=== PATIENT | female | born 1985 | race Caucasian/White ===

== ENCOUNTER → 2017-09-26 22:02 | Observation (INO) ==
--- NOTE | 2017-09-26 20:46 | OB/GYN Progress Note ---
Date of Encounter: 09/26/17 Time of Encounter: 20:41 - Assessment and Plan (1) 38 weeks gestation of Current Visit: Yes Status: Acute (2) Uterine contractions during Current Visit: Yes Status: Acute No change on serial exams, Will discharge home with when to return to triage precautions. Subjective - Subjective Interval history: 38+6 presents to triage with contractions starting this afternoon.Pt used [place] oil to help induce labor due to being induced at [facility] on Thursday. Pt reports good movement, denies vaginal bleeding or leaking of fluid. Antepartum ROS: movement normal, contractions, no loss of fluid, no vaginal bleeding Objective - Vital Signs Vital Signs: Intake and Output 09/26/17 09/26/17 09/26/17 07:59 15:59 23:59 Other: Weight 75.8 kg Patient Weight 09/26/17 23:59 Weight 75.8 kg - Exam FHR: auscultation normal FHR comments: 135/moderate/+accels/-decels Abdomen: Present: soft, gravid Cervical dilation: 3/80 per RN
== END | disposition home or self-care (01) ==
LOC: 1NENULAB
PROVIDERS: ADMIT Advanced Practice Midwife; ATTEND Advanced Practice Midwife

== ENCOUNTER 2017-09-27 04:38 | Inpatient (IN) ==
[2017-09-27 02:10] LABS: Basophils % 0.3 %; Eosinophils % 0.3 %; Immature Granulocytes % 0.5 % (0-4); Lymphocytes # 2.2 K/mcL (0.6-4.6); Lymphocytes % 14.6 %; Mean Corpuscular HGB Conc 34.9 g/dL (31.6-35.5); Mean Corpuscular Hemoglobin 32.4 pg (28.0-33.3); Mean Corpuscular Volume 92.9 fL (83.0-100.0); Mean Platelet Volume 9.8 fL (9.4-12.4); Monocytes # 0.9 K/mcL (0.0-1.3); Monocytes % 5.7 %; Neutrophils # 11.9 K/mcL (1.6-8.9); Platelet Count 216 K/mcL (140-400); Red Blood Count 4.63 M/mcL (3.82-4.97); Red Cell Distribution Width 13.4 % (11.5-14.5); Segmented Neutrophils % 78.6 %
--- NOTE | 2017-09-27 02:13 | OB/GYN History & Physical ---
Date of Encounter: 09/27/17 Time of Encounter: 02:11 Assessment and Plan (1) 39 weeks gestation of Current visit: Yes Status: Acute (2) Labor, precipitous, antepartum Current visit: Yes Status: Acute Patient is progressing quickly. Anticipate vaginal delivery. History of Present Illness Chief complaint: contractions HPI: Ms. Bryan is a 32 year old female at 39 0/7 weeks. She presents for contractions that began at 1700 and have progressively gotten worse. She reports vaginal bleeding, but does not believe her water has broken. Her has been uncomplicated. Past Med Surg Social Fam HX - Past Medical History Attestation: Yes The following information was validated with the patient. Source: patient Medical history: no medical history Psychiatric history: no psych history - Past Surgical History Surgical History: non-contributory (dental implants and wisdom teeth) - Social History Smoking Status: Never smoker Smokeless Tobacco Status: No Alcohol use: none Drug use: none Current living situation: Home - Independent, With Family - Family History Father Adopted: No Family Member Ethnicity: Non- Living Status: Still Living Hx Family Cardiac Disorders: No Hx Family Respiratory Disorders: No Hx Family Cancer: No Hx Family GI Disorders: No Hx Family Endocrine Disorder: No Hx Family Neuromuscular Disorders: No Hx Family Neurologic Disorders: No Hx Family HEENT Disorders: No Hx Family Autoimmune Disorders: No Obstetrical History - Pregnancies : 4 Para: 3 Term: 3 : 0 Ab's: 0 Livin - History/Complications History/Complications: none Medications and Allergies Pnv Cmb#21/Iron/Folic Acid [ Complete Caplet] 1 each PO DAILY 09/27/17 [ History] 3 Allergy/AdvReac Type Severity Reaction Status Date / Time No Known Allergies Allergy Verified 09/27/17 02:04 Review of System OB ROS unobtainable: other (due to active labor) All systems PM: reviewed and no additional remarkable complaints except as stated Exam - Constitutional Constitutional: well developed, well nourished, average body habitus, mild distress (breathing and moaning with contractions) - HEENT HEENT: EOMI, Mucus Membranes Moist - Lungs Respiratory exam: CTAB - Cardiovascular Cardiovascular exam: RRR - Abdomen Abdomen: Present: bowel sounds normal, gravid, non tender - Extremities Extremities exam: warm - Vulva Vulva: bilateral: normal - Vagina Vagina: Present: normal moisture - Cervix Dilation: 9 Effacement: 100 Station: -2 - Comments Comments: AROM with clear fluid noted FHTs category 1 Results Result Diagrams: 09/27/17 01:54 All other labs normal.
--- NOTE | 2017-09-27 02:54 | OB/GYN Procedure Note ---
Delivery - Delivery Date: 09/27/17 Provider: Gissell Rose Intrapartum events: none Delivery augmentation: rupture of membranes Delivery monitor: external FHT, external uterine Anesthesia: local Estimated Blood Loss: 400 - Infant (s) Infant A Delivery Date: 09/27/17 Delivery Time: 02:19 Presentation: vertex Position: YVETTE Route of delivery: Gender: Male Viability: Viable at 1 minute: 9 at 5 mins: 9 Shoulder Dystocia: not encountered Specimens collected: cord blood Placenta: spontaneous Cord: 3 umbilical vessels - Repair Episiotomy: none Laceration Description: Perineal - 2nd Degree - Complications Delivery complications: none Delivery comments: Called to room with patient complete and +2 station. Under maternal effort she delivered a viable male with Apgars 9 and 9 at one and 5 minutes respectively over a second-degree perineal laceration. Following delivery of the head the body delivered quickly, and was placed on mom's abdomen. Second-degree perineal laceration was anesthetized using 1% lidocaine and repaired with 3-0 Vicryl in standard fashion. Cord was then clamped and cut. Cord segment collected. Cord blood collected. Placenta delivered spontaneously , complete, and intact with a three-vessel cord. Infant weight is still pending at time of documentation. Mother and are recovering in the LDR in stable condition. - Disposition Mom disposition: stable in LDR [place] disposition: stable in LDR
[~2017-09-27 04:38] MED LIST: *HR* Nalbuphine 10 MG/ML AMPUL IVP PRN; Famotidine 20 MG/2 ML VIAL IVP PRN; Lidocaine 1% 20 ML MDV ID ONE; Metoclopramide 10 MG/2 ML VIAL IVP PRN; Naloxone 0.4 MG/ML INJ IVP PRN; Ondansetron 4 MG/2 ML VIAL IVP PRN; Oxytocin 20 units/ LR 1000 mL 20 UNIT/1,000 ML BAG IVC ONE; Ringers Solution, Lactated 1,000 ML IVC SCH
[2017-09-27] MEDS ORDERED: Oxytocin 20 units/ LR 1000 mL 20 UNIT/1,000 ML BAG IVC ONE (04:39)
[2017-09-27] MEDS ORDERED: Acetaminophen 325 MG TABLET PO PRN (05:08)
[2017-09-27] MEDS ORDERED: Oxytocin 20 units/ LR 1000 mL 20 UNIT/1,000 ML BAG IVC SCH (05:15)
[2017-09-27] MEDS: Prenatal Vit/FA 1 EACH TABLET PO SCH (08:53)
[2017-09-28] MEDS: Prenatal Vit/FA 1 EACH TABLET PO SCH (07:33)
--- NOTE | 2017-09-28 09:32 | Discharge Summary ---
Date of Encounter: 09/28/17 Time of Encounter: 09:30 - Discharge Diagnosis (1) Vaginal delivery Priority: Primary Status: Acute Comments: Feeling well Denies FOSS, visual disturbance and epigastric pain Ambulating without difficulty Voiding without difficulty Passing gas, no BM yet Cramping, does not want pain medication Baby well Desires breastpump prescription Desires to go home today - Discharge Medications Prescriptions: Ibuprofen [Motrin] 600 mg PO Q6HR PRN #30 tab PRN Reason: cramping Breast Pump [BREAST PUMP] 1 each .ROUTE AD #1 each Docusate [Colace] 100 mg PO BID #20 capsule Home Medications: Pnv Cmb#21/Iron/Folic Acid [ Complete Caplet] 1 each PO DAILY 09/27/17 [ History] Acetaminophen [Tylenol] 650 mg PO Q6HR PRN tablet 09/28/17 [Rx] Breast Pump [BREAST PUMP] 1 each .ROUTE AD #1 each 09/28/17 [Rx] Docusate [Colace] 100 mg PO BID #20 capsule 09/28/17 [Rx] Ibuprofen [Motrin] 600 mg PO Q6HR PRN #30 tab 09/28/17 [Rx] Allergies/Adverse Reactions: 3 Allergy/AdvReac Type Severity Reaction Status Date / Time No Known Allergies Allergy Verified 09/27/17 02:04 Data Procedures and tests throughout hospitalization: Laboratory Tests 09/27/17 01:54 WBC 15.2 H RBC 4.63 Hgb 15.0 Hct 43.0 MCV 92.9 MCH 32.4 MCHC 34.9 RDW 13.4 Plt Count 216 MPV 9.8 Immature Gran % 0.5 Seg Neutrophils % 78.6 Lymphocytes % 14.6 Monocytes % 5.7 Eosinophils % 0.3 Basophils % 0.3 Neutrophils # 11.9 H Lymphocytes # 2.2 Monocytes # 0.9 Eosinophils # 0.0 Basophils # 0.0 Date of admission: 09/27/17 04:38 Consults: 09/27/17 05:08 Consult to And Rescue [employer] Crash Fire [CONS] Routine Comment: Vaginal delivery, consult needed Discharging clinician: Breana Ayala Anticipated date of discharge: 09/28/17 - Patient Status Disposition: Home, Self-Care Condition: Good Functional capacity at discharge: independent ambulation Overall status at discharge: patient is progressing back to baseline - Discharge Instructions Follow Up With: Gissell Rose DO [Partnered Physician] - 10/26/17 10:25 am - Diet and Activity Activity: increase activity as tolerated Diet: advance to your usual diet Hospital Course Reason for admission: active labor Delivery: Episiotomy: none Laceration: 2nd degree Other procedures: none complications: none Discharge diagnosis: IUP at term delivered baby: male Time Attestation: Total time spent providing and/or coordinating discharge services: Time Spent: Less than 30 minutes Exam - Constitutional Vitals: Temp Pulse Resp BP Pulse Ox 98.2 F 83 16 105/70 96 09/28/17 08:00 09/28/17 08:00 09/28/17 08:00 09/28/17 08:00 09/27/17 19:50 General appearance IM: cooperative, A&O X 3, pleasant, no acute distress, answers questions appropriately - Respiratory Respiratory exam: Present: CTAB - Cardiovascular Cardiovascular exam IM: Present: RRR - GI/Abdominal GI/Abdominal exam IM: normal bowel sounds, soft - Rectal Rectal exam: deferred - Uterine Tone: Firm Uterus Position: At Umbilicus - Extremities Exam Extremities exam IM: Present: full ROM, normal inspection, radial pulses palpable and symmetrical - Neurological Exam Neurological exam: alert, oriented X3, reflexes normal
[2017-09-28 10:10] VITALS: BP 121/77
== END 2017-09-28 10:48 | disposition home or self-care (01) | DRG 775 ==
LOC: 1NENULAB → 1NENUOBS 04:49
PROVIDERS: ADMIT Advanced Practice Midwife; ATTEND Advanced Practice Midwife

== ENCOUNTER 2019-02-16 08:00 | Inpatient (IN) ==
[2019-02-16] MEDS ORDERED: Ondansetron 4 MG/2 ML VIAL IVP PRN (08:45)
[2019-02-16] MEDS ORDERED: Famotidine 20 MG/2 ML VIAL IVP PRN (08:45)
[2019-02-16] MEDS ORDERED: Naloxone 0.4 MG/ML INJ IVP PRN (08:45)
[2019-02-16] MEDS ORDERED: *HR* Nalbuphine 10 MG/ML AMPUL IVP PRN (08:45)
[2019-02-16] MEDS ORDERED: D5% in Lactated Ringers 1,000 ML IVC SCH (08:45)
[2019-02-16] MEDS ORDERED: Oxytocin 20 units/ LR 1000 mL 20 UNIT/1,000 ML BAG IVC SCH ×2 (08:45→21:42)
[2019-02-16] MEDS ORDERED: Metoclopramide 10 MG/2 ML VIAL IVP PRN (08:45)
[2019-02-16] MEDS ORDERED: Ringers Solution, Lactated 1,000 ML ONE (09:32)
[2019-02-16 09:46] LABS: Basophils % 0.2 %; Eosinophils # 0.1 K/mcL (0.0-0.6); Eosinophils % 0.7 %; Hemoglobin 14.2 g/dL (11.5-15.4); Immature Granulocytes % 0.9 % (0-4); Lymphocytes # 1.7 K/mcL (0.6-4.6); Lymphocytes % 13.2 %; Mean Corpuscular HGB Conc 34.6 g/dL (31.6-35.5); Mean Corpuscular Hemoglobin 32.8 pg (28.0-33.3); Mean Corpuscular Volume 94.7 fL (83.0-100.0); Mean Platelet Volume 9.7 fL (9.4-12.4); Monocytes # 0.8 K/mcL (0.0-1.3); Monocytes % 6.4 %; Neutrophils # 10.2 K/mcL (1.6-8.9); Platelet Count 189 K/mcL (140-400); Red Blood Count 4.33 M/mcL (3.82-4.97); Red Cell Distribution Width 13.4 % (11.5-14.5); Segmented Neutrophils % 78.6 %; White Blood Count 12.9 K/mcL (4.3-11.1)
[2019-02-16 09:55] LABS: Amphetamine Screen,Urine Negative ng/mL (Cutoff=1000); Barbiturate Screen,Urine Negative ng/mL (Cutoff=200); Benzodiazepines Screen,Urine Negative ng/mL (Cutoff=200); Cannabinoid Screen,Urine Negative ng/mL (Cutoff = 50); Cocaine Screen,Urine Negative ng/mL (Cutoff= 300); Opiate Screen,Urine Negative ng/mL (Cutoff=300); Phencyclidine Screen,Urine Negative ng/mL (Cutoff=25)
[2019-02-16] MEDS ORDERED: Lidocaine/EPI 1:200k 1% PF 10 ML VIAL ONE (18:45)
[2019-02-16] MEDS ORDERED: Acetaminophen 325 MG TABLET PO PRN (21:42)
[2019-02-16] MEDS ORDERED: Ibuprofen 600 MG TABLET PO PRN (21:42)
[2019-02-17] MEDS ORDERED: Lanolin 7 G OINT...G. TP PRN (04:39)
[2019-02-17] MEDS ORDERED: Prenatal Vit/FA 1 EACH TABLET PO SCH (09:00)
[2019-02-17 16:19] VITALS: BP 113/79
== END 2019-02-17 17:41 | disposition home or self-care (01) | DRG 807 ==
LOC: 1NENULAB 08:04 → 1NENUOBS 21:41
PROVIDERS: ADMIT Obstetrics & Gynecology; ATTEND Obstetrics & Gynecology

== ENCOUNTER → 2020-10-31 23:22 | Observation (INO) | END | disposition home or self-care (01) | LOC: 1NENULAB | PROVIDERS: ADMIT Obstetrics & Gynecology; ATTEND Obstetrics & Gynecology ==

== ENCOUNTER 2020-12-19 16:09 | Inpatient (IN) ==
[2020-12-19] MEDS ORDERED: Ondansetron 4 MG/2 ML VIAL IVP PRN (17:21)
[2020-12-19] MEDS ORDERED: Famotidine 20 MG/2 ML VIAL IVP PRN (17:21)
[2020-12-19] MEDS ORDERED: Metoclopramide 10 MG/2 ML VIAL IVP PRN (17:21)
[2020-12-19] MEDS ORDERED: Naloxone 0.4 MG/ML INJ IVP PRN (17:21)
[2020-12-19] MEDS ORDERED: Azithromycin 500 MG in 0.9 % Sodium Chloride 250 ML IVPB PRN (17:21)
[2020-12-19] MEDS ORDERED: Lidocaine 1% 20 ML MDV ID PRN (17:21)
[2020-12-19] MEDS ORDERED: *HR* Nalbuphine 10 MG/ML AMPUL IV PRN (17:21)
[2020-12-19] MEDS ORDERED: Ringers Solution, Lactated 1,000 ML IVC SCH (17:30)
[2020-12-19 17:43] LABS: Basophils % 0.3 %; Eosinophils # 0.1 K/mcL (0.0-0.6); Eosinophils % 0.6 %; Hematocrit 37.7 % (35.3-44.9); Hemoglobin 12.8 g/dL (11.5-15.4); Immature Granulocytes % 0.6 % (0-4); Lymphocytes # 1.3 K/mcL (0.6-4.6); Lymphocytes % 12.6 %; Mean Corpuscular Hemoglobin 32.6 pg (28.0-33.3); Mean Corpuscular Volume 95.9 fL (83.0-100.0); Mean Platelet Volume 9.6 fL (9.4-12.4); Monocytes # 0.7 K/mcL (0.0-1.3); Monocytes % 6.5 %; Neutrophils # 8.4 K/mcL (1.6-8.9); Platelet Count 177 K/mcL (140-400); Red Blood Count 3.93 M/mcL (3.82-4.97); Red Cell Distribution Width 13.3 % (11.5-14.5); Segmented Neutrophils % 79.4 %; White Blood Count 10.6 K/mcL (4.3-11.1)
[2020-12-19] MEDS ORDERED: Oxytocin 20 units/ LR 1000 mL 20 UNIT/1,000 ML BAG IVC SCH (17:45)
[2020-12-19 17:51] LABS: Amphetamine Screen,Urine Negative ng/mL (Cutoff=1000); Barbiturate Screen,Urine Negative ng/mL (Cutoff=200); Benzodiazepines Screen,Urine Negative ng/mL (Cutoff=200); Cannabinoid Screen,Urine Negative ng/mL (Cutoff = 50); Cocaine Screen,Urine Negative ng/mL (Cutoff= 300); Opiate Screen,Urine Negative ng/mL (Cutoff=300); Phencyclidine Screen,Urine Negative ng/mL (Cutoff=25)
[2020-12-19 18:31] LABS: Rubella IgG Antibody Negative (POSITIVE); Varicella Zoster IgG Antibody Positive
[2020-12-19 19:12] LABS: Hepatitis B Surface Antigen Nonreactive (Nonreactive)
[2020-12-19 19:40] LABS: Hepatitis C Virus Antibody Nonreactive (Nonreactive)
[2020-12-20] MEDS ORDERED: EPHEDrine 50 MG/ML VIAL IVP PRN (04:24)
[2020-12-20] MEDS ORDERED: Ropivacaine/PF 0.2% 20 ML VIAL EP ONE (04:24)
[2020-12-20] MEDS ORDERED: *HR* FentaNYL (PF) 100 MCG/2 ML VIAL EP ONE (04:24)
[2020-12-20] MEDS ORDERED: Epidural Premix (fent/bupiv) 110 ML EP SCH (04:30)
[2020-12-20] MEDS ORDERED: Ropivacaine/PF 0.2% 20 ML VIAL ONE (04:31)
[2020-12-20] MEDS ORDERED: *HR* FentaNYL (PF) 100 MCG/2 ML VIAL ONE (04:31)
[2020-12-20] MEDS ORDERED: Lidocaine 1% 20 ML MDV ONE (08:52)
[2020-12-20] MEDS ORDERED: Tranexamic Acid 1,000 MG/100ML 1,000 MG/100 ML PIGGYBACK IVPB ONE (10:27)
[2020-12-20 10:39] LABS: Basophils % 0.1 %; Eosinophils % 0.1 %; Hematocrit 33.2 % (35.3-44.9); Immature Granulocytes % 0.7 % (0-4); Lymphocytes # 0.9 K/mcL (0.6-4.6); Lymphocytes % 6.2 %; Mean Corpuscular HGB Conc 32.8 g/dL (31.6-35.5); Mean Corpuscular Hemoglobin 32.4 pg (28.0-33.3); Mean Corpuscular Volume 98.8 fL (83.0-100.0); Mean Platelet Volume 9.4 fL (9.4-12.4); Monocytes # 0.7 K/mcL (0.0-1.3); Monocytes % 5.2 %; Neutrophils # 12.5 K/mcL (1.6-8.9); Platelet Count 155 K/mcL (140-400); Red Blood Count 3.36 M/mcL (3.82-4.97); Red Cell Distribution Width 13.5 % (11.5-14.5); Segmented Neutrophils % 87.7 %; White Blood Count 14.3 K/mcL (4.3-11.1)
[2020-12-20 10:40] LABS: Hemoglobin 10.9 g/dL (11.5-15.4)
[2020-12-20 11:02] LABS: Prothrombin Time 11.6 Seconds (9.4-12.1)
[2020-12-20 11:05] LABS: Activated Partial Thrombo Time 24.9 Seconds (26.0-36.0)
[2020-12-20 13:49] LABS: Hematocrit 30.8 % (35.3-44.9); Hemoglobin 10.5 g/dL (11.5-15.4)
[2020-12-20] MEDS ORDERED: Oxytocin 20 units/ LR 1000 mL 20 UNIT/1,000 ML BAG IVC ONE (17:38)
[2020-12-20] MEDS ORDERED: Acetaminophen 325 MG TABLET PO PRN (17:38)
[2020-12-20] MEDS ORDERED: Measles/Mumps/Rubella Vacc 0.5 ML VIAL SQ PRN (17:38)
[2020-12-20] MEDS ORDERED: Benzocaine/Menthol 56 GM AEROSOL SPRAY TP PRN (17:38)
[2020-12-20] MEDS ORDERED: Oxytocin 20 units/ LR 1000 mL 20 UNIT/1,000 ML BAG IVC SCH (17:38)
[2020-12-20] MEDS ORDERED: Rho Immune Globulin 1,500 UNIT SYRINGE IM PRN (17:38)
[2020-12-21] MEDS: Ibuprofen 600 MG TABLET PO PRN ×2 (03:35→09:19)
[2020-12-21] MEDS: Prenatal Vit/FA 1 EACH TABLET PO SCH ×2 (07:30→09:20)
[2020-12-21 07:31] LABS: Basophils % 0.1 %; Eosinophils % 0.1 %; Hematocrit 25.9 % (35.3-44.9); Hemoglobin 8.6 g/dL (11.5-15.4); Immature Granulocytes % 0.6 % (0-4); Lymphocytes % 5.9 %; Mean Corpuscular HGB Conc 33.2 g/dL (31.6-35.5); Mean Corpuscular Hemoglobin 32.8 pg (28.0-33.3); Mean Corpuscular Volume 98.9 fL (83.0-100.0); Mean Platelet Volume 9.8 fL (9.4-12.4); Monocytes # 1.1 K/mcL (0.0-1.3); Monocytes % 6.2 %; Neutrophils # 14.8 K/mcL (1.6-8.9); Platelet Count 154 K/mcL (140-400); Red Blood Count 2.62 M/mcL (3.82-4.97); Red Cell Distribution Width 13.5 % (11.5-14.5); Segmented Neutrophils % 87.1 %
[2020-12-21 08:07] VITALS: BP 91/56
== END 2020-12-21 11:17 | disposition home or self-care (01) | DRG 806 ==
LOC: 1NENULAB 16:09 → 1NENUOBS 12-20 16:34
PROVIDERS: ADMIT Obstetrics & Gynecology; ATTEND Obstetrics & Gynecology